=== PATIENT | male | born 1985 ===

== ENCOUNTER 2020-02-20 00:34 | Emergency (ER) | payer OTHER ==
[2020-02-20 00:46] VITALS: BP 130/86; PULSE 74; TEMP 98; BMI 25.0
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
== END 2020-02-20 00:59 | disposition home or self-care (01) ==
LOC: FER 00:34
DX: S00.83XA Contusion of other part of head, initial encounter (principal); S50.811A Abrasion of right forearm, initial encounter
CPT/HCPCS: 99282-25